=== PATIENT | female | born 1955 | race Caucasian/White ===

== ENCOUNTER → 2021-05-10 | Outpatient (CLI) | payer MEDICARE, MEDICAID ==
--- NOTE | 2021-05-10 10:57 | KCIC ---
Examination: MRI of the right tibia and fibula without contrast HISTORY: History of lower leg pain COMPARISON: None available Technique: Multiplanar, multisequence MR imaging of the right tibia and fibula without contrast FINDINGS: Partially visualized severe joint space loss in the medial, lateral compartments likely severe degene rative changes. Partially visualized attenuation and blunting of the body of the medial, lateral men iscus probably tears.. Partially visualized knee joint effusion. The alignment of the tibia, fibula g rossly appears unremarkable. Mild increased T2 signal identified medially in the lower leg likely [place]. IMPRESSION: 1. Severe degenerative changes knee joint. 2. Partially visualized attenuation and blunting of the body of the medial, lateral meniscus probabl y tears. 3. Partially visualized knee joint effusion. 4. Mild increased T2 signal identified medially in the lower leg likely edema. Electronically signed by: Usman Duque MD (05/10/2021 10:55 AM) [id number]
== END ==
LOC: KCIC MRI 08:09
PROVIDERS: ATTEND Physician Assistant
DX: M17.11 Unilateral primary osteoarthritis, right knee (principal); M25.461 Effusion, right knee; G57.71 Causalgia of right lower limb
CPT/HCPCS: 73718

== ENCOUNTER → 2021-07-05 | Outpatient (CLI) | payer MEDICARE, MEDICAID ==
--- NOTE | 2021-07-05 10:35 | KCIC ---
EXAM: Lumbar spine MRI without contrast. HISTORY: Pain. Right lower extremity radiculopathy. TECHNIQUE: Multiplanar, multisequence magnetic resonance imaging of the lumbar spine was performed wi thout contrast. COMPARISON: None. FINDINGS: There is mild lumbar hyperlordosis. There is 5 mm grade 1 anterolisthesis of L4 and L5. The re is multilevel endplate remodeling and spurring. There is disc space narrowing at multiple levels, with relative sparing of the disc space at L3-L4. There are few benign osseous hemangiomas. There is no suspicious osseous lesion. There is no acute or subacute fracture. The conus terminates at L2. At L1-L2, there is a shallow left paracentral disc protrusion and annular tear superimposed on a disc bulge and endplate osteophytosis. There is mild bilateral facet arthropathy. There is mild left fora bree stenosis. There is minimal central canal stenosis. At L2-L3, there is a diffuse disc bulge and endplate osteophytosis. There is mild bilateral facet art hropathy. There is hypertrophy of the ligamentum flavum. There is mild bilateral foraminal stenosis. There is mild central canal stenosis. At L3-L4, there is a disc bulge and endplate osteophytosis. There is mild bilateral facet arthropathy . There is moderate bilateral foraminal stenosis. There is mild central canal stenosis. At L4-L5, there is a right foraminal to extraforaminal disc protrusion superimposed on a disc bulge a nd endplate osteophytosis. There is severe bilateral facet arthropathy. There is hypertrophy of the l igamentum flavum. There is grade 1 anterolisthesis. There is [id number] right and mild left for aminal stenosis. There is severe central canal stenosis. At L5-S1, there is a left foraminal to extraforaminal disc protrusion and osteophyte complex superimp osed on a disc bulge and left lateral predominant endplate remodeling. There is mild right and modera te left facet arthropathy. There is mild right and moderate left foraminal stenosis. IMPRESSION: 1. Multilevel degenerative change involving the lumbar spine, described in detail above. This is asso ciated with foraminal and central canal stenosis at the aforementioned levels. The right foraminal st enosis is most significant at L3-L4, the left foraminal stenosis is most significant at L3-L4 and L5- S1, and the central canal stenosis is most significant at L4-L5. 2. Lumbar hyperlordosis and grade 1 anterolisthesis of L4 on L5. Electronically signed by: Marcie Sahni MD (07/05/2021 10:33 AM) [id number]
== END ==
LOC: KCIC MRI 09:18
PROVIDERS: ATTEND Physician Assistant
DX: M47.26 Other spondylosis with radiculopathy, lumbar region (principal); M48.07 Spinal stenosis, lumbosacral region; M40.46 Postural lordosis, lumbar region; M43.16 Spondylolisthesis, lumbar region; M51.27 Other intervertebral disc displacement, lumbosacral region; M48.8X7 Other specified spondylopathies, lumbosacral region
CPT/HCPCS: 72148

== ENCOUNTER → 2022-02-24 | Outpatient (CLI) | payer MEDICARE, MEDICAID ==
[~2022-02-24] MED LIST: ACET500T68 PO; ASPI-630 PO; CALC-31 PO; CRESTOR5 MG PO; DULO30CA2 PO; FLUT9.9S NS; LISI-130 PO; MULT-445 PO; OXYC1TAB15 PO; PANT20TA2 PO; TIZA-75 PO
[2022-02-24 14:34] LABS: BASO % 1 % (0-3); EOS # 0.1 x10^3/uL (0.0-0.7); EOS % 1 % (0-3); HEMATOCRIT 42.4 % (36.0-47.0); HEMOGLOBIN 14.5 g/dL (12.0-15.5); LYMPH # 2.1 x10^3/uL (1.0-4.8); LYMPH % 29 % (24-48); MEAN CORPUSCULAR HEMOGLOBIN 30 pg (25-35); MEAN CORPUSCULAR HGB CONC 34 g/dL (31-37); MEAN CORPUSCULAR VOLUME 89 fL (79-100); MONO # 0.6 x10^3/uL (0.0-1.1); MONO % 8 % (0-9); NEUT # 4.5 x10^3/uL (1.8-7.7); NEUT % 62 % (31-73); PLATELET COUNT 264 x10^3/uL (140-400); RED BLOOD COUNT 4.78 x10^6/uL (3.50-5.40); WHITE BLOOD COUNT 7.3 x10^3/uL (4.0-11.0)
[2022-02-24 14:45] LABS: PROTHROMBIN TIME PATIENT 13.4 SEC (11.7-14.0)
[2022-02-24 14:54] LABS: ALBUMIN 4.1 g/dL (3.4-5.0); CREATININE 1.1 mg/dL (0.6-1.0); GFR 49.7; POTASSIUM 4.3 mmol/L (3.5-5.1); TOTAL BILIRUBIN 0.4 mg/dL (0.2-1.0); TOTAL PROTEIN 8.2 g/dL (6.4-8.2)
--- NOTE | 2022-02-24 16:10 | EKG ---
[facility] [address] [place] [address] Test Date: 2022-02-24 Test Time: 15:23:15 Pat Name: STEVEN DWYER Department: Room: Gender: F Decontaminator: FITZ : 1955 Requested By: JANAE TOLBERT Order Number: [id number] Reading MD: Gopal Castillo Measurements Intervals Call Rate: 66 P: 41 UT: 178 QRS: -24 QRSD: 78 T: 34 QT: 396 QTc: 417 Interpretive Statements SINUS RHYTHM LEFTWARD AXIS CONSIDER LEFT VENTRICULAR HYPERTROPHY Electronically Signed On 02-25-2022 10:44:57 CDT by Gopal Castillo
== END ==
LOC: SURGPAT 13:51
PROVIDERS: ATTEND Neurological Surgery
DX: Z01.818 Encounter for other preprocedural examination (principal); M54.16 Radiculopathy, lumbar region; M48.062 Spinal stenosis, lumbar region with neurogenic claudication; M43.16 Spondylolisthesis, lumbar region; I10 Essential (primary) hypertension
CPT/HCPCS: 36415; 80053; 85025; 85610; 85730; 87641; 93005

== ENCOUNTER 2022-03-03 06:19 | Observation (INO) | payer MEDICARE, MEDICAID ==
[2022-02-26 11:11] VITALS: BP 125/86
--- NOTE | 2022-03-02 23:32 | HP ---
DATE OF SERVICE: 03/02/2022 ADMIT DATE: 03/03/2022 HISTORY OF PRESENT ILLNESS: The patient is a pleasant 66-year-old who is having problems with low back pain and pain that radiates into her buttocks, posterior thighs, stopping at about her knees. The problem has been present for years, but is slowly worsening. She says her pain is 10/10 at its worst. At its best, her pain is 2-3/10. Bending and standing increase her pain. She states she is only able to stand for about 30 minutes and then the sit. With moving and walking, she does okay. She is taking tizanidine, tramadol and Tylenol. She has had lumbar epidural steroid injections, which she said helped for a short time. In 2020, she underwent physical therapy without benefit. She has had chiropractic treatment about a year ago with minimal benefit. CURRENT MEDICATIONS: Aspirin, multivitamin, vitamin D, calcium, fluticasone, pantoprazole, duloxetine, pravastatin, lisinopril, Tylenol, tramadol, tizanidine. PAST MEDICAL HISTORY: Arthritis, asthma, seizures, headaches, hypertension. PAST SURGICAL HISTORY: Right foot surgery, cholecystectomy, hysterectomy, tonsillectomy, knee surgery, bladder surgery. FAMILY HISTORY: Cancer, heart disease, hypertension, [place]. SOCIAL HISTORY: Retired, . Does not smoke. Drinks alcohol 1-2 times per year. ALLERGIES: VICODIN. REVIEW OF SYSTEMS: A 12-point review of systems was performed and is noncontributory except that mentioned above. PHYSICAL EXAMINATION: GENERAL: Alert, pleasant, in no acute distress. HEENT: Head is normocephalic, atraumatic. SKIN: Warm and dry. MUSCULOSKELETAL: Lumbar paraspinal muscle bulk is normal, restricted range of motion of the lumbar spine, [id number] tenderness of the lumbar spine with palpation, normal range of motion of the lower extremities bilaterally. EXTREMITIES: No clubbing, cyanosis or edema. NEUROLOGIC: Alert and oriented x 3. Strength is 5/5 in the bilateral lower extremities, sensory was intact to light touch in the lower extremities, reflexes were present and symmetric in the lower extremities bilaterally, negative straight leg raising bilaterally, normal gait. IMAGING: I reviewed a lumbar MRI scan from 06/2021. On that study, there is severe lumbar spinal stenosis present at L4-L5, combined with a grade 1 anterolisthesis at 5 mm. ASSESSMENT AND PLAN: The patient is going to require a wide decompression at L4-L5 to deal with her severe spinal stenosis. In addition, she will require an instrumented fusion. I spoke with her about the rationale, technique and the risk of this approach as well as the expected postoperative course. She understands and would like to proceed. JOANN/SHITAL/TONY DR: Giancarlo TID: [id number]
[~2022-03-03] VITALS: Ht 167.6 cm; Wt 98.5 kg
[~2022-03-03 06:19] MED LIST changes: +DEXAMETHASONE SOD PHOS 4 MG/ML VIAL ONE; +FAMOTIDINE 20 MG/2 ML VIAL ONE; +LIDOCAINE 2% PF 5 ML VIAL. ONE; +ONDANSETRON PF 4 MG/2 ML VIAL. ONE; -OXYC1TAB15 PO; +PHENYLEPHRINE 10 MG/ML VIAL. ONE; +PROCHLORPERAZINE 10 MG/2 ML VIAL. IVP PRN; +PROPOFOL 10 MG/ML (20ML) VIAL. IV ONE; +PROPOFOL 50 ML IV ONE; +REMIFENTANIL 1 MG VIAL. IV ONE; +SEVOFLURANE 61 TO 120 MINUTES. IH ONE; +ceFAZolin SODIUM 1 GM in IV NORMAL SALINE 1000ML BAG 1,000 ML IRR ONE; +fentaNYL PF VIAL 100 MCG/2 ML VIAL IVP PRN; +fentaNYL PF VIAL 100 MCG/2 ML VIAL ONE
[2022-03-03] MEDS ORDERED: GELATIN SPONGE SIZE 100. ONE (06:37)
[2022-03-03] MEDS ORDERED: KETOROLAC 60 MG/2 ML VIAL. ONE (06:38)
[2022-03-03] MEDS ORDERED: BUPIVACAINE-EPI 0.5% 30 ML VIAL KIT. ONE (06:38)
[2022-03-03] MEDS ORDERED: THROMBIN TOPICAL 20,000 UNIT SPRAY.SYRN KIT TP ONE (06:38)
[2022-03-03] MEDS ORDERED: SCOPOLAMINE 1.5MG PATCH. TD ONE (07:00)
[2022-03-03] MEDS: IV RINGERS,LACTATED 1000ML 1,000 ML IV SCH ×2 (07:09→15:30)
[2022-03-03] MEDS ORDERED: PROPOFOL 50 ML IV ONE ×2 (07:46→09:21)
[2022-03-03] MEDS ORDERED: KETAMINE HCL IN NACL, ISO-OSM 50 MG/5 ML SYRINGE ONE (08:10)
[2022-03-03] MEDS ORDERED: REMIFENTANIL 1 MG VIAL. IV ONE (09:19)
--- NOTE | 2022-03-03 09:52 | RAD ---
CT LUMBAR SPINE WO History: Spondylolisthesis, stenosis. Technique: Noncontrast CT was performed of the lumbar spine. Multiplanar reconstructions were perform ed. Comparison: MRI lumbar spine 07/05/2021. Findings: Normal vertebral body height. There is mild grade 1 anterolisthesis of L4 on L5. T12-L1: No significant disc or facet disease. L1-L2: Mild disc space narrowing and facet hypertrophy cause mild bilateral foraminal stenosis. Subtl y appreciated central disc bulge effaces the anterior CSF space. L2-L3: Mild disc space narrowing, central disc bulge and facet hypertrophy cause mild foraminal steno sis and effacement of the anterior CSF space. L3-L4: Disc height is relatively well preserved. There is a minimal disc bulge and mild bilateral fac et hypertrophy with mild bilateral foraminal stenosis. L4-L5: Grade 1 anterolisthesis with disc height loss, bilateral facet arthropathy, and ligamentum fla vum hypertrophy causing significant spinal canal stenosis, approximately 5 mm AP and moderate bilater al foraminal stenosis. L5-S1: Advanced disc height loss with disc bulge and facet hypertrophy cause moderate or greater bila teral foraminal stenosis. The paraspinal soft tissues are unremarkable. Impression: 1. Multilevel degenerative disc and facet disease greatest at L4-L5 where there is mild anterolisthe sis and significant spinal canal stenosis. Exposure: One or more of the following individualized dose reduction techniques were utilized for thi s examination: 1. Automated exposure control 2. Adjustment of the mA and/or kV according to patient size 3. Use of iterative reconstruction technique. Electronically signed by: Saurabh Herring MD (03/03/2022 9:49 AM) [id number]
[2022-03-03] MEDS ORDERED: HYDROmorphone 2 MG/ML INJ. ONE ×2 (12:53→15:46)
[2022-03-03] MEDS ORDERED: CALCIUM CARBONATE 500 MG TAB.CHEW PO PRN (15:00)
[2022-03-03] MEDS ORDERED: diphenhydrAMINE HCL 25 MG CAPSULE PO PRN (15:00)
[2022-03-03] MEDS ORDERED: ONDANSETRON PF 4 MG/2 ML VIAL. IVP PRN (15:00)
[2022-03-03] MEDS ORDERED: MAGNESIUM HYDROXIDE 2,400 MG/30 ML ORAL.SUSP. PO PRN (15:00)
[2022-03-03] MEDS ORDERED: 0.9 % SODIUM CHLORIDE 10 ML DISP.SYRIN. IV PRN (15:00)
[2022-03-03] MEDS ORDERED: ACETAMINOPHEN 325 MG TABLET. PO PRN (15:00)
[2022-03-03] MEDS ORDERED: NALOXONE 0.4 MG/ML VIAL. IV PRN (15:00)
[2022-03-03] MEDS ORDERED: oxyCODONE/APAP 5/325 1 TAB TABLET PO PRN (15:00)
[2022-03-03] MEDS ORDERED: POTASSIUM CL 20MEQ D5-0.45NACL 1,000 ML IV SCH (15:00)
[2022-03-03] MEDS ORDERED: MAG HYDROX/ALUMINUM HYD/SIMETH 30 ML ORAL.SUSP PO PRN (15:00)
[2022-03-03] MEDS ORDERED: PROCHLORPERAZINE 10 MG/2 ML VIAL. ONE (15:44)
[2022-03-03] MEDS ORDERED: HYDROmorphone 2 MG/ML INJ. IVP STA (15:54)
--- NOTE | 2022-03-03 17:00 | NUR ---
received from recovery. she has no family here per her request --"they are out of town." she falls asleep. she has good strength, sensation , motion and pulses bilateral lower extremities. fabrication specialist bilaterally weaker; but she does this while falling asleep. dressing to her back is clean and dry. she repositioned onto her right side.
[2022-03-03 17:30] VITALS: BP 140/62
[2022-03-03 17:45] VITALS: BP 121/60
[2022-03-03 18:01] VITALS: BP 129/71
[2022-03-03] MEDS: ceFAZolin SODIUM IV Push 1 GM VIAL. IVP SCH (18:13)
[2022-03-03 19:00] VITALS: BP 130/58
[2022-03-03 20:00] VITALS: BP 136/72
[2022-03-03] MEDS: tiZANidine 4 MG TABLET. PO SCH (20:14)
[2022-03-03] MEDS: ACETAMINOPHEN 500 MG TABLET PO SCH (20:14)
[2022-03-03] MEDS: ATORVASTATIN CALCIUM 20 MG TABLET PO SCH (20:15)
[2022-03-03] MEDS: DOCUSATE SODIUM 100 MG CAPSULE. PO SCH (20:15)
[2022-03-03 21:00] VITALS: BP 123/69
[2022-03-04] MEDS: ceFAZolin SODIUM IV Push 1 GM VIAL. IVP SCH ×2 (02:00→11:44)
[2022-03-04 07:00] VITALS: BP 125/63
[2022-03-04] MEDS: ASPIRIN CHEWABLE 81 MG TABLET. PO SCH (08:20)
[2022-03-04] MEDS: CALCIUM CARB/VIT D3 500/200 TABLET. PO SCH (08:20)
[2022-03-04] MEDS: PANTOPRAZOLE 40 MG TABLET.DR. PO SCH (08:20)
[2022-03-04] MEDS: MULTIVITAMIN with MINERAL TABLET. PO SCH (08:20)
[2022-03-04] MEDS: DOCUSATE SODIUM 100 MG CAPSULE. PO SCH ×2 (08:20→20:52)
[2022-03-04] MEDS: DULoxetine HCL 30 MG CAPSULE.DR PO SCH (08:21)
[2022-03-04] MEDS: ACETAMINOPHEN 500 MG TABLET PO SCH ×2 (08:21→20:53)
[2022-03-04] MEDS: oxyCODONE/APAP 5/325 1 TAB TABLET PO PRN ×3 (08:30→21:07)
[2022-03-04] MEDS: FLUTICASONE 50MCG/NASAL SPRAY 16GM BOTTLE. NS SCH (09:00)
[2022-03-04] MEDS ORDERED: LISINOPRIL 20 MG TABLET PO SCH (09:00)
--- NOTE | 2022-03-04 09:23 | OP ---
DATE OF SURGERY: 03/03/2022 PREOPERATIVE DIAGNOSES: Lumbar spinal stenosis, L4-L5 and spondylolisthesis, L4-L5. OPERATION PERFORMED: 1. Bilateral hemilaminotomies with decompression of dura, L4-L5. 2. Posterior instrumentation, L4-L5 and posterolateral fusion, L4-L5. The operation was done with EMG monitoring, SSEP monitoring, somatosensory-evoked potentials, motor-evoked potentials, fluoroscopy, BrainLAB guidance. SURGEON: Iraj Vallejo M.D. SENIOR SECURITY ENGINEER: BENTLEY Saldana; assisted with the surgery. She assisted with the exposure, bilateral microdecompression, placement of the instrumentation as well as the fusion. OPERATIVE INDICATIONS: The patient is a pleasant 66-year-old who developed intractable back and bilateral leg pain, left greater than right and on imaging studies had severe stenosis at L4-L5 along with grade 1 anterolisthesis. I recommended decompression and fusion. She understood the surgery and the risks. She strongly wished to go ahead. DESCRIPTION OF PROCEDURE: Following general endotracheal anesthesia, the patient was positioned prone on the Vahid table. Lumbar region prepped and draped in standard fashion. JONAS hose and AV impulse boots were applied for DVT prophylaxis. The microscope was draped, fluoroscopy was draped and brought into field. Monitoring was established. Ancef 2 grams given less than one hour prior to initiation of the surgery. Using fluoroscopic guidance, an incision was made extending from superior L4 to inferior L5, dissected down through skin and subcutaneous tissue, reflected the paraspinal muscles and placed Darwin retractors. I then brought in the microscope and using high-speed air drill, I burred down a generous hemilaminotomy first on the right side and then on the left side, trimming away the very thickened ligamentum flavum, performing partial foraminotomies and fully decompressed the entire region. I then clamped the BrainLAB Star onto the superior aspect of the spinous process of L4 and initialized the BrainLAB. Then beginning on the left side, I placed pedicle screws at L4 and L5 using the Fanear spine system. I used 6.5 x 40 screws in both of those locations without difficulty. I also excoriated the transverse processes, lateral facets vigorously and packed allograft bone and after I had aspirated 20 mL of bone marrow and prepared the bone right side in a similar fashion, drilled in the posterior aspect of the pedicles of L4 and L5. I was concerned about the pedicle of L4 and I used a 5.5 screw, but as I was torquing, there was some motion of the screws. I did not feel it was excellent purchase so I then removed the screws and I put a 6.5 screw in that location. I did pack allograft bone in the right lateral gutter. The screws were placed, placed the rods, which were 40 mm rods and placed the caps and torqued. I then irrigated copiously. I obtained x-rays, which showed excellent positioning of the hardware. I removed the retractors and irrigated again. Hemostasis was excellent closing the wound in layers with absorbable suture. The skin was closed with 4-0 subcuticular stitch. I felt the surgery went very well. SHILA DR: Ysabel TID: [id number] QUINTIN
[2022-03-04 11:00] VITALS: BP 111/55
--- NOTE | 2022-03-04 13:22 | PDOC ---
PROGRESS NOTES Date of Service DATE: 03/04/22 TIME: 13:19 Subjective Subjective POD #1 S/P laminectomy and fusion L4-5 up in chair, nauseated required straight cath overnight has ambulated and leg pain has resolved, back/ incision is sore Objective Objective Vital Signs Date Time Temp Pulse Resp B/P (MAP) Pulse Ox O2 Delivery O2 Flow Rate FiO2 03/04/22 11:00 98.8 69 18 111/55 (73) 95 Room Air 98.8 03/03/22 21:00 2.0 Intake and Output 03/04/22 07:00 Intake Total 1720 ml Output Total 2450 ml Balance -730 ml Intake Oral 320 ml IV Total 1400 ml Output Urine Total 2400 ml Estimated Blood Loss 50 ml Physical Exam General: Alert, Oriented X3, Cooperative, No acute distress MUSCULOSKELETAL: Other (LEYVA) Neuro: Normal speech Skin: Other (Dressing dry and intact) Plan Plan of Care PT activity as tolerated possible dc tomorrow if voiding and eating well Comment Review of Relevant I have reviewed the following items sayra (where applicable) has been applied. Labs Laboratory Tests Test 03/03/22 06:45 POC SARS CoV-2 Antigen Negative (NEGATIVE) Medications Current Medications Fentanyl Citrate (Fentanyl 2ml Vial) 25 mcg PRN Q5MIN PRN IVP MILD PAIN 1-3; Start 03/03/22 at 06:00; Stop 03/04/22 at 05:59; Status DC Fentanyl Citrate (Fentanyl 2ml Vial) 50 mcg PRN Q5MIN PRN IVP MODERATE PAIN 4- 6; Start 03/03/22 at 06:00; Stop 03/04/22 at 05:59; Status DC Ringer's Solution 1,000 ml @ 30 mls/hr Q24H IV Last administered on 03/03/22at 15:30; Start 03/03/22 at 06:00; Stop 03/03/22 at 17:59; Status DC Prochlorperazine Edisylate (Compazine) 5 mg PACU PRN PRN IVP NAUSEA, MRX1 Last administered on 03/03/22at 15:53; Start 03/03/22 at 06:00; Stop 03/04/22 at 05:59; Status DC Cefazolin Sodium/ Dextrose 50 ml @ 100 mls/hr 1X PREOP PRN IV PRIOR TO PROCEDURE Last administered on 03/03/22at 09:40; Start 03/03/22 at 06:00; Stop 03/03/22 at 18:00; Status DC Cefazolin Sodium 1 gm/Sodium Chloride 1,000 ml @ 1,000 mls/hr 1X ONCE IRR Last administered on 03/03/22at 10:12; Start 03/03/22 at 06:00; Stop 03/03/22 at 06:59; Status DC Gelatin (Gelfoam Size 100) 1 each STK-MED ONCE .ROUTE Last administered on 03/03/22at 10:12; Start 03/03/22 at 06:37; Stop 03/03/22 at 06:38; Status DC Bupivacaine HCl/ Epinephrine Bitart (Sensorcain-Epi 0.5% Kit) 30 ml STK-MED ONCE .ROUTE Last administered on 03/03/22at 10:12; Start 03/03/22 at 06:38; Stop 03/03/22 at 06:38; Status DC Ketorolac Tromethamine (Toradol Im) 60 mg STK-MED ONCE .ROUTE Last administered on 03/03/22 10:12; Start 03/03/22 at 06:38; Stop 03/03/22 at 06:38; Status DC Thrombin 20,000 unit STK-MED ONCE TP Last administered on 03/03/22 10:12; Start 03/03/22 at 06:38; Stop 03/03/22 at 06:38; Status DC Scopolamine (Transderm-Scop) 1 patch 1X ONCE TD Last administered on 03/03/22at 07:32; Start 03/03/22 at 07:00; Stop 03/03/22 at 07:01; Status DC Propofol (Diprivan) 200 mg STK-MED ONCE IV ; Start 03/03/22 at 05:28; Stop 03/03/22 at 07:28; Status DC Famotidine (Pepcid Vial) 20 mg STK-MED ONCE .ROUTE ; Start 03/03/22 at 05:28; Stop 03/03/22 at 07:28; Status DC Lidocaine HCl (Lidocaine Pf 2% Vial) 5 ml STK-MED ONCE .ROUTE ; Start 03/03/22 at 05:28; Stop 03/03/22 at 07:28; Status DC Ondansetron HCl (Zofran) 4 mg STK-MED ONCE .ROUTE ; Start 03/03/22 at 05:28; Stop 03/03/22 at 07:28; Status DC Phenylephrine HCl (John-Synephrine Inj) 10 mg STK-MED ONCE .ROUTE ; Start 03/03/22 at 05:28; Stop 03/03/22 at 07:28; Status DC Propofol 50 ml @ As Directed STK-MED ONCE IV ; Start 03/03/22 at 05:28; Stop 03/03/22 at 07:29; Status DC Dexamethasone Sodium Phosphate (Decadron) 4 mg STK-MED ONCE .ROUTE ; Start 03/03/22 at 05:28; Stop 03/03/22 at 07:29; Status DC Sevoflurane (Ultane) 60 ml STK-MED ONCE IH ; Start 03/03/22 at 05:28; Stop 03/03/22 at 07:29; Status DC Fentanyl Citrate (Fentanyl 2ml Vial) 100 mcg STK-MED ONCE .ROUTE ; Start 03/03/22 at 05:29; Stop 03/03/22 at 07:29; Status DC Remifentanil HCl (Ultiva) 1 mg STK-MED ONCE IV ; Start 03/03/22 at 05:29; Stop 03/03/22 at 07:29; Status DC Propofol 50 ml @ As Directed STK-MED ONCE IV ; Start 03/03/22 at 07:46; Stop 03/03/22 at 09:46; Status DC Ketamine HCl (Ketamine) 50 mg STK-MED ONCE .ROUTE ; Start 03/03/22 at 08:10; Stop 03/03/22 at 10:10; Status DC Acetaminophen (Tylenol) 500 mg BID PO Last administered on 03/04/22at 08:21; Start 03/03/22 at 21:00 Aspirin (Aspirin Chewable) 81 mg DAILY PO Last administered on 03/04/22at 08:20; Start 03/04/22 at 09:00 Duloxetine HCl (Cymbalta) 30 mg DAILY PO Last administered on 03/04/22at 08:21; Start 03/04/22 at 09:00 Lisinopril (Prinivil) 40 mg DAILY PO ; Start 03/04/22 at 09:00 Tizanidine HCl (Zanaflex) 4 mg QHS PO Last administered on 03/03/22at 20:14; Start 03/03/22 at 21:00 Calcium/Vitamin D (Oscal D 500mg/ 200uts) 1 tab DAILY PO Last administered on 03/04/22at 08:20; Start 03/04/22 at 09:00 Fluticasone Propionate (Flonase) 2 spray DAILY NS ; Start 03/04/22 at 09:00 Multivitamins (Thera M Plus) 1 tab DAILY PO Last administered on 03/04/22at 08:20; Start 03/04/22 at 09:00 Pantoprazole Sodium (Protonix) 40 mg DAILYAC PO Last administered on 03/04/22at 08:20; Start 03/04/22 at 07:30 Atorvastatin Calcium (Lipitor) 20 mg QHS PO Last administered on 03/03/22at 20:15; Start 03/03/22 at 21:00 Acetaminophen (Tylenol) 650 mg PRN Q6HRS PRN PO MILD PAIN / TEMP > 100.3'F; Start 03/03/22 at 15:00 Al Hydroxide/Mg Hydroxide (Mylanta Plus Xs) 30 ml PRN Q3HRS PRN PO HEARTBURN / GAS; Start 03/03/22 at 15:00 Calcium Carbonate/ Glycine (Tums) 500 mg PRN Q3HRS PRN PO INDIGESTION; Start 03/03/22 at 15:00 Diphenhydramine HCl (Benadryl) 25 mg PRN Q6HRS PRN PO ITCHING; Start 03/03/22 a t 15:00 Naloxone HCl (Narcan) 0.1 mg PRN Q2MIN PRN IV SEE COMMENTS; Start 03/03/22 at 15:00 Sodium Chloride (Normal Saline Flush) 3 ml QSHIFT PRN IV AFTER MEDS AND BLOOD DRAWS; Start 03/03/22 at 15:00 Potassium Chloride/Dextrose/ Sod Cl 1,000 ml @ 75 mls/hr [id number] IV ; Start 03/03/22 at 15:00 Oxycodone/ Acetaminophen (Percocet 5/325) 1 tab PRN Q4HRS PRN PO MILD PAIN, 1ST CHOICE Last administered on 03/04/22at 08:30; Start 03/03/22 at 15:00 Oxycodone/ Acetaminophen (Percocet 5/325) 2 tab PRN Q4HRS PRN PO MODERATE PAIN, SEVERE PAIN; Start 03/03/22 at 15:00 Docusate Sodium (Colace) 100 mg BID PO Last administered on 03/04/22at 08:20; Start 03/03/22 at 21:00 Magnesium Hydroxide (Milk Of Magnesia) 2,400 mg PRN Q12HR PRN PO CONSTIPATION; Start 03/03/22 at 15:00 Ondansetron HCl (Zofran) 4 mg PRN Q6HRS PRN IVP NAUESA, 1ST CHOICE; Start 03/03/22 at 15:00 Cefazolin Sodium (Ancef) 1 gm Q8H IVP Last administered on 03/04/22at 11:44; Start 03/03/22 at 18:00; Stop 03/04/22 at 10:01; Status DC Hydromorphone HCl (Dilaudid) 0.5 mg PRN Q10MIN STAT IVP Last administered on 03/03/22at 15:58; Start 03/03/22 at 15:54; Stop 03/03/22 at 16:17; Status DC Remifentanil HCl (Ultiva) 1 mg STK-MED ONCE IV ; Start 03/03/22 at 09:19; Stop 03/03/22 at 16:54; Status DC Propofol 50 ml @ As Directed STK-MED ONCE IV ; Start 03/03/22 at 09:21; Stop 03/03/22 at 16:54; Status DC Hydromorphone HCl (Dilaudid) 2 mg STK-MED ONCE .ROUTE ; Start 03/03/22 at 12:53; Stop 03/03/22 at 16:56; Status DC Prochlorperazine Edisylate (Compazine) 10 mg STK-MED ONCE .ROUTE ; Start 03/03/22 at 15:44; Stop 03/03/22 at 16:56; Status DC Hydromorphone HCl (Dilaudid) 2 mg STK-MED ONCE .ROUTE ; Start 03/03/22 at 15:46; Stop 03/03/22 at 16:56; Status DC Active Scripts Active Reported Calcium 500 + D Tablet (Calcium Carbonate/Vitamin D3) 1 Each Tablet 1 Each PO DAILY Protonix (Pantoprazole Sodium) 20 Mg Tablet.dr 20 Mg PO BID Lisinopril 40 Mg Tablet 40 Mg PO DAILY Aspirin 81 Mg Tab.chew 81 Mg PO DAILY Cymbalta (Duloxetine Hcl) 30 Mg Capsule.dr 30 Mg PO DAILY Tizanidine Hcl 4 Mg Tablet 1 Tab PO QHS Crestor (Rosuvastatin Calcium) 5 Mg Tablet 5 Mg PO DAILY08 Acetaminophen 500 Mg Tablet 500 Mg PO BID Multivitamins (Multivitamin) 1 Each Tablet 1 Each PO DAILY Flonase Allergy Relief (Fluticasone Propionate) 9.9 Ml [place].susp 2 Sprays NS DAILY Vitals/I & O Vital Sign - Last 24 Hours 03/03/22 03/03/22 03/03/22 03/03/22 15:03 15:03 15:18 15:33 Temp 97.0 97.0 Pulse 84 80 76 Resp 20 20 20 B/P (MAP) 140/62 119/45 118/46 Pulse Ox 100 100 99 O2 Delivery Simple Mask Mask Simple Mask Simple Mask O2 Flow Rate 10.0 10.0 10.0 10.0 03/03/22 03/03/22 03/03/22 03/03/22 15:48 15:58 16:03 16:18 Temp 98.0 98.0 Pulse 71 58 71 Resp 20 20 20 20 B/P (MAP) 105/42 124/47 119/58 Pulse Ox 100 100 100 98 O2 Delivery Simple Mask Bag Valve Mask Simple Mask Room Air O2 Flow Rate 10.0 10.0 10.0 2.0 03/03/22 03/03/22 03/03/22 03/03/22 16:30 17:13 17:30 17:45 Pulse 61 63 Resp 16 16 B/P (MAP) 140/62 (88) 121/60 (80) Pulse Ox 100 100 O2 Delivery Nasal Cannula Nasal Cannula Nasal Cannula Nasal Cannula O2 Flow Rate 2.0 2.0 3.0 3.0 03/03/22 03/03/22 03/03/22 03/03/22 18:01 19:00 20:00 21:00 Pulse 61 56 74 64 Resp 16 16 16 16 B/P (MAP) 129/71 (90) 130/58 (82) 136/72 (93) 123/69 (87) Pulse Ox 98 100 98 98 O2 Delivery Nasal Cannula Nasal Cannula Nasal Cannula Nasal Cannula O2 Flow Rate 2.0 2.0 2.0 2.0 03/04/22 03/04/22 03/04/22 03/04/22 07:00 07:45 08:30 09:00 Temp 98.8 98.8 Pulse 67 Resp 18 B/P (MAP) 125/63 (83) Pulse Ox 96 O2 Delivery Room Air Room Air Room Air Room Air 03/04/22 11:00 Temp 98.8 98.8 Pulse 69 Resp 18 B/P (MAP) 111/55 (73) Pulse Ox 95 O2 Delivery Room Air Intake and Output 03/03/22 03/03/22 03/04/22 15:00 23:00 07:00 Intake Total 1720 ml Output Total 2450 ml Balance -730 ml Justifications for Admission Other Justification ELIJAH LIAO COMMERCIAL ENGINEER March 04, 2022 13:22
--- NOTE | 2022-03-04 14:55 | NUR ---
Bladder scan and had 501 ml. Pt attempt to void and was able to void. Bladder scan again after voiding and had no residual. Cont. monitor output.
[2022-03-04 15:00] VITALS: BP 128/64
--- NOTE | 2022-03-04 16:15 | NUR ---
Pt ambulated to bathroom with standby assist. Able to void without difficulty. Cont. encourage po fluids.
[2022-03-04 19:15] VITALS: BP 122/50
[2022-03-04] MEDS: ATORVASTATIN CALCIUM 20 MG TABLET PO SCH (20:52)
[2022-03-04] MEDS: tiZANidine 4 MG TABLET. PO SCH (20:53)
[2022-03-04 23:41] VITALS: BP 91/42
[2022-03-05 03:00] VITALS: BP 79/34
[2022-03-05 03:11] VITALS: BP 87/42
--- NOTE | 2022-03-05 03:56 | NUR ---
Incision cleansed w/ Betadine swabs and an island dressing applied. No drainage, oozing or smell noted. Turned pt to back. Encouraged pt to drink more water. Yun given.
[2022-03-05 04:44] VITALS: BP 98/46
[2022-03-05 07:00] VITALS: BP 102/41
[2022-03-05] MEDS: DULoxetine HCL 30 MG CAPSULE.DR PO SCH (08:19)
[2022-03-05] MEDS: CALCIUM CARB/VIT D3 500/200 TABLET. PO SCH (08:19)
[2022-03-05] MEDS: ASPIRIN CHEWABLE 81 MG TABLET. PO SCH (08:19)
[2022-03-05] MEDS: DOCUSATE SODIUM 100 MG CAPSULE. PO SCH (08:20)
[2022-03-05] MEDS: MULTIVITAMIN with MINERAL TABLET. PO SCH (08:20)
[2022-03-05] MEDS: PANTOPRAZOLE 40 MG TABLET.DR. PO SCH (08:20)
[2022-03-05] MEDS: ACETAMINOPHEN 500 MG TABLET PO SCH (08:24)
[2022-03-05] MEDS: FLUTICASONE 50MCG/NASAL SPRAY 16GM BOTTLE. NS SCH (08:30)
--- NOTE | 2022-03-05 10:00 | NUR ---
Feeling better this morning. Voiding without difficulty and tolerating diet. Ambulating better. Cont. monitor.
[2022-03-05 11:00] VITALS: BP 118/56
[2022-03-05] MEDS ORDERED: OXYC1TAB15 PO (14:48)
--- NOTE | 2022-03-05 14:50 | DISCH ---
DISCHARGE INSTRUCTIONS Condition on Discharge Condition on Discharge: Stable Activity After Discharge Activity Instructions for Disc: Activity as tolerated, Avoid exertion Other activity instructions: no driving for a week, brace on when up Bathing Instructions: Shower-keep dressing dry Lifting Instructions after Dis: No heavy lifting, No pulling or pushing, Do not lift >10 pounds Diet after Discharge Additional Diet Restrictions: resume home diet Wound Incision Care Wound/Incision Care: Ice to area for comfort, Change dressing Other wound/incision instructi: ok to remove dressing when dry, no soaking Contacting the DRDeanna after DC Call your doctor for: Concerns you may have Follow-Up Follow up with: Dr. Tolbert's nurse in 2 weeks [phone] JANAE TOLBERT MD March 05, 2022 14:50
[2022-03-05] MEDS: oxyCODONE/APAP 5/325 1 TAB TABLET PO PRN (15:13)
--- NOTE | 2022-03-05 15:35 | NUR ---
Discharge instructions given. Answered questions and concerns. Verbalized understanding. Pt discharged home. Escorted out by w/c. Friend accompanied.
--- NOTE | 2022-03-06 09:10 | PATHOLOGY ---
[facility] Accession Number: [id number] . 01 Material submitted: . vertebral column - LUMBAR DECOMPRESSION . 01 Clinical history: . SPONDYLOLISTHESIS, RADICULOPATHY, STENOSIS . 02 Diagnosis: Segments of fibrocartilaginous and fibroadipose tissue and bone, lumbar decompression: - Degenerative changes of fibrocartilaginous tissue. . ([facility]:mm; 03/05/2022) [facility] 03/05/2022 1349 Local . 02 Comment: There is no evidence of an acute inflammatory process or malignancy. . ([facility]:mml; 03/05/2022) . 02 Electronically signed: . Bennie Dixon MD, Pathologist NPI- [id number] . 01 Gross description: . The specimen is received in formalin, labeled "Silvina Izquierdo, lumbar decompression" and consists of multiple dunham-north to pale yellow rubbery and hard irregularly shaped tissues aggregating 4.0 x 4.0 x 0.9 cm. Sectioning reveals dunham-north, duksy and firm cut surfaces. [employer] Ann[employer]cer sections are submitted in one cassette following decalcification.([place]; 03/04/2022) DKA/DKA 03/04/2022 1702 Local . 02 Pathologist provided ICD-10: M43.10, M54.10 . 02 CPT . 523660, 122221 Specimen Comment: A courtesy copy of this report has been sent to [phone], [phone] Specimen Comment: [phone] Specimen Comment: Report sent to / DR CHAUHAN Specimen Comment: A duplicate report has been generated due to demographic updates. Performed at: [address], [place], [place] [id number] MD Isaiah Hui MD Phone: [phone] Performed at: [address] [id number] MD Bennie Dixon MD Phone: [phone]
== END 2022-03-05 15:35 | disposition home or self-care (01) ==
LOC: OPSVCIP 06:19 → INTOOBSV 06:19 → 4 NORTH 16:45
PROVIDERS: ADMIT Neurological Surgery; ATTEND Neurological Surgery
DX: M48.061 Spinal stenosis, lumbar region without neurogenic claudication (principal); Z20.822 Contact with and (suspected) exposure to COVID-19; M43.16 Spondylolisthesis, lumbar region; I10 Essential (primary) hypertension; J45.909 Unspecified asthma, uncomplicated; M19.90 Unspecified osteoarthritis, unspecified site; R56.9 Unspecified convulsions; R51.9 Headache, unspecified; Z90.710 Acquired absence of both cervix and uterus; Z90.49 Acquired absence of other specified parts of digestive tract; Z79.899 Other long term (current) drug therapy; Z98.890 Other specified postprocedural states
CPT/HCPCS: 20930; 22612; 22840; 36415; 72131; 86850; 86900; 86901; 88304; 88311; 96374; 96376; 97110; 97116; 97162; 97530; A4314; A4364; A4556; A4930; A6254; A6257; A6258; C1713; G0378; G0379; J0690; J0780; J1100; J1170; J1885; J2370; J2405; J2704; J3010; J3490; J7030; J7120; 76000; A4222; A4657